=== PATIENT | male | born 1960 | race American Indian/Alaskan Native ===

== ENCOUNTER 2018-10-30 15:16 | Emergency (ER) | payer MEDICAID ==
--- NOTE | 2018-10-30 15:39 | Emergency Department Report ---
Blank Doc - Documentation Documentation: This is a 58-year-old male that presents with left knee pain. This initial assessment/diagnostic orders/clinical plan/treatment(s) is/are subject to change based on patient's health status, clinical progression and re- assessment by fellow clinical providers in the ED. Further treatment and workup at subsequent clinical providers discretion. Patient/guardians urged not to elope from the ED as their condition may be serious if not clinically assessed and managed. Initial orders include: 1- Patient sent to [facility] for further evaluation and treatment 2- xrays
[2018-10-30 15:40] VITALS: BP 130/88
--- NOTE | 2018-10-30 16:28 | Emergency Department Report ---
ED Back Pain/Injury HPI - General Chief Complaint: Extremity Injury, Lower Stated Complaint: LT KNEE PAIN Time Seen by Provider: 10/30/18 15:38 Source: patient Limitations: No Limitations - History of Present Illness Initial Comments: 58 YO AA MALE WITH CONTUSION OF KNEE. HE HIT IT ON A UHAUL HITCH. NO EFFUSION. AMBULATORY - Related Data Previous Rx's Medication Instructions Recorded Last Taken Type predniSONE [Deltasone] 20 mg PO DAILY #5 tablet 10/30/18 Unknown Rx Allergies Allergy/AdvReac Type Severity Reaction Status Date / Time Penicillins Allergy Unknown Verified 10/30/18 15:40 ED Review of Systems ROS: Stated complaint: LT KNEE PAIN Other details as noted in HPI Comment: All other systems reviewed and negative ED Past Medical Hx - Past Medical History Medical history: no medical history ED Back Pain Physical Exam - Exam General: Vital signs noted. No distress. Alert and acting appropriately. JOINT LINE WITHOUT TENDERNESS NO EFFUSION ON EXAM. Back/Abdomen: No Abdominal Tenderness, No Perithoracic Tenderness, No Perilumbar Tenderness, No Sacroiliac Tenderness, No Flank Tenderness, No Straight Leg Raise Pain Neuro: Yes Normal Sensation, Yes Normal DTR's, Yes Normal Gait, No Motor Weakness ED Course Vital Signs 10/30/18 15:38 Temperature 98.5 F Pulse Rate 98 H Respiratory 18 Rate Blood Pressure 130/88 O2 Sat by Pulse 98 Oximetry Ed Back Pain Tests - Tests Tests: Normal X Rays ED Medical Decision Making - Radiology Data Radiology results: report reviewed, image reviewed - Medical Decision Making XRAY NEG DC HOME WITH ANTI-INFLAMMATORY AND ORTHO FOLLOW UP Vital Signs 10/30/18 15:38 Temperature 98.5 F Pulse Rate 98 H Respiratory 18 Rate Blood Pressure 130/88 O2 Sat by Pulse 98 Oximetry - Differential Diagnosis RO FX/EFFUSION Critical care attestation.: If time is entered above; I have spent that time in minutes in the direct care of this critically ill patient, excluding procedure time. ED Disposition Clinical Impression: Knee contusion Disposition: DC-01 TO HOME OR SELFCARE Is pt being admited?: No Does the pt Need Aspirin: No Condition: Stable Instructions: Contusion in Adults (ED) Additional Instructions: ALTERNATE WARM AND COOL COMPRESSES MOTRIN AND TYLENOL OVER THE COUNTER FOR PAIN MED ORDERED TODAY FOLLOW UP WITH ORTHO MD REFERRAL BELOW Referrals: KAITY RANDLE MD [Staff Physician] - 3-5 Days Time of Disposition: 16:59
--- NOTE | 2018-10-30 16:52 | XRay Report ---
LEFT KNEE 3 VIEWS INDICATION / CLINICAL INFORMATION: L KNEE PAIN COMPARISON: None available. FINDINGS: BONES / JOINT(S): The joint spaces are well-maintained. No significant arthritis. There is no evidenc e of fracture, dislocation, destructive lesion or joint effusion. SOFT TISSUES: There is minimal spurring at the quadriceps insertion on the upper pole patella. ADDITIONAL FINDINGS: Mild atherosclerotic calcifications are present in the upper calf. IMPRESSION: No acute abnormality. Signer Name: Rohit Alves MD Signed: 10/30/2018 4:47 PM Workstation Name: [id number]
[2018-10-30] MEDS ORDERED: DELTASONE PO ONE (16:58)
== END 2018-10-30 17:48 | disposition home or self-care (01) ==
LOC: ED 15:16
DX: S80.02XA Contusion of left knee, initial encounter (principal); Z79.899 Other long term (current) drug therapy; Z88.0 Allergy status to penicillin; W22.8XXA Striking against or struck by other objects, initial encounter; Y93.89 Activity, other specified; Y92.89 Other specified places as the place of occurrence of the external cause; Y99.8 Other external cause status
CPT/HCPCS: 73562; 99283; J7512